=== PATIENT | male | born 1985 | race Caucasian/White ===

== ENCOUNTER 2022-11-12 15:27 | Emergency (ER) | payer OTHER, SELFPAY ==
[2022-11-12] VITALS (18 sets, daily range): BP systolic 133–173; BP diastolic 86–114; PULSE 69–90; RESP 14; TEMP 36.6; O2SAT 96–100
[2022-11-12] MEDS: HYDROmorphone 2 MG/ML SYR (15:45)
--- NOTE | 2022-11-12 15:45 | DI.CT_ITS ---
Exam(s) CT LOWER EXTREMITY RT WO EXAM: CT LOWER EXTREMITY RT WO CLINICAL HISTORY: right ankle injury- Trauma fall from +10ft. TECHNIQUE: Imaging Protocol: Axial computed tomography images with coronal and sagittal reformatted images were created and reviewed. CONTRAST MATERIAL: None COMPARISON: No exams were available for comparison FINDINGS: Bones: Markedly comminuted calcaneal fracture. Fracture at junction of body and tuberosity in the c oronal plane some adjacent comminuted fragments. Multiple other of fracture fragment extending anter iorly to involve the anterior process. There is involvement of the anterior middle and posterior fac ets of the talocalcaneal joint. There are several millimeters of separation at the fracture sites. No additional fractures are identified. There is no joint space narrowing or cystic degeneration see n. No lytic or sclerotic lesions are identified. Calcaneal Enthesophytes incidentally noted. Soft Tissues: Edema greatest at the dorsal lateral aspect of the ankle and foot. IMPRESSION: Severely comminuted calcaneal fracture. RADIATION DOSE DELIVERED: 359.93mGy.cm Total DLP DATA REPOSITORY: All CT scans at this facility are submitted to the National Radiology Data Registry (NRDR) Dose Index Registry (DIR) with the [employer] (ACR). RADIATION OPTIMIZATION: All CT scans at this facility use at least one of these dose optimization te chniques: automated exposure control; mA and/or kV adjustment per patient size (includes targeted exa ms where dose is matched to clinical indication); or iterative reconstruction.
--- NOTE | 2022-11-12 15:45 | DI.CT_ITS ---
Exam(s) CT HEAD CERVICAL SPINE WO EXAM: CT HEAD CERVICAL SPINE WO CLINICAL HISTORY: Trauma fall from +10ft. TECHNIQUE: Imaging Protocol: Axial computed tomography images with coronal and sagittal reformatted images were created and reviewed COMPARISON: No exams were available for comparison FINDINGS: Head CT Ventricles and Extra axial spaces: Normal in size and morphology for the patient's age. Hemorrhage: None. Cerebral parenchyma: Normal. Midline shift: None. Brainstem/Cerebellum: Normal. Calvarium: Normal. Visualized Paranasal sinuses/Mastoids: Mucosal thickening of the ethmoid, maxillary, cysts fee noise and right frontal sinus. Mastoid air cells are clear. Cervical Spine CT BONES: Vertebral body heights are maintained. Alignment is normal. There is no evidence of acute frac ture. Mild degenerative disc changes and facet degenerative changes are seen . SOFT TISSUES: No paraspinal hematoma. The airway appears intact. No pneumothorax is seen at the lung apices. IMPRESSION: Head CT: Chronic sinus disease. No acute abnormality. C-spine CT: Mild degenerative changes, no acute abnormality. RADIATION DOSE DELIVERED: 1,662.06mGy.cm Total DLP DATA REPOSITORY: All CT scans at this facility are submitted to the National Radiology Data Registry (NRDR) Dose Index Registry (DIR) with the [employer] (ACR). RADIATION OPTIMIZATION: All CT scans at this facility use at least one of these dose optimization te chniques: automated exposure control; mA and/or kV adjustment per patient size (includes targeted exa ms where dose is matched to clinical indication); or iterative reconstruction.
--- NOTE | 2022-11-12 15:45 | DI.CT_ITS ---
Exam(s) CT CHEST/ABD/PEL W CT THORACIC LUMBAR SPINE REC EXAM: CT CHEST/ABD/PEL W CLINICAL HISTORY: Trauma fall from +10ft. TECHNIQUE: Imaging Protocol: Axial computed tomography images with coronal and sagittal reformatted images were created and reviewed CONTRAST MATERIAL: Intravenous: Omnipaque 350 Contrast volume:100 ml Oral: no COMPARISON: CT CT THORACIC LUMBAR SPINE REC from 11/12/2022 FINDINGS: CHEST: Tracheobronchial tree: Patent where visualized. Pulmonary parenchyma: No consolidation or dominant measurable mass. Pleura: No effusion or pneumothorax. Lymph nodes: Within normal limits. Aorta: Thoracic portion non-dilated. Heart: Normal Bones: Unremarkable for age. No lytic or blastic lesions.No compression fractures. No rib fractures . CT THORACIC SPINE: No evidence of fracture. Mild degenerative changes. ABDOMEN: Liver: Normal density. No measurable mass. Gallbladder and biliary tract: No radiodense calculus or dilation. Pancreas: Normal density, no abnormal calcifications or inflammatory process. Spleen: Normal. Kidneys: Normal size, contour and axis. No radiodense stones or obstructive uropathy. No suspicious m asses seen. Adrenal glands: No masses seen. Aorta: Abdominal portion non-dilated. Lymph nodes: Within normal limits. Soft tissues: Unremarkable. CT LUMBAR SPINE: No evidence spine or pelvic fracture. Mild degenerative disc changes. PELVIS: Bladder: Symmetric distention, no gross wall thickening. Bowel: No obstruction or bowel wall thickening. Peritoneal cavity: No ascites, collection or mesenteric inflammatory response. Bones: Unremarkable for age.. No pelvic or spine fractures. Reproductive organs: Within normal limits. IMPRESSION: No acute abnormality in the chest, abdomen or pelvis.. RADIATION DOSE DELIVERED: Total DLP DATA REPOSITORY: All CT scans at this facility are submitted to the National Radiology Data Registry (NRDR) Dose Index Registry (DIR) with the [employer] (ACR). RADIATION OPTIMIZATION: All CT scans at this facility use at least one of these dose optimization te chniques: automated exposure control; mA and/or kV adjustment per patient size (includes targeted exa ms where dose is matched to clinical indication); or iterative reconstruction.
[2022-11-12] MEDS: HYDROmorphone 2 MG/ML SYR 1 MG IVP ×2 (16:10→18:43)
--- NOTE | 2022-11-12 16:13 | ED.GENADUL_ITS ---
Discharge Plan Disposition Patient Disposition: Transfer-Acute Inpatient Care Specific Acute Inpt Facility: [facility] Discharge Details Clinical Impression: Calcaneus fracture, right Primary Care Provider: None,None ED Provider: Adalberto Matute Home Meds and New Rx's Prescriptions: No Action escitalopram oxalate [Lexapro] 10 mg Tablet 10 mg PO DAILY clonazepam 0.5 mg Tablet 0.5 mg PO TID omeprazole 20 mg Tablet,Delayed Release (Dr/Ec) 20 mg PO DAILY Discharge Data Discharge Date/Time-TO BE ENTERED AT DEPARTURE: 11/12/22 19:17 Medical Decision Making Patient presenting to the emergency department via EMS for chief complaint of fa ll from a ladder that was greater than 10 feet. Patient mostly complaining of right lower extremity pain and discomfort. And right earlobe laceration. Patient is somewhat emotionally hysterical and crying a lot stating severe pain. This does limit somewhat of the review of systems and exam. Trauma exam is overall unremarkable except for the noted laceration to right lower ear externally and diffuse tenderness with any palpation or movement of the right ankle. There is diffuse swelling. Patient has no range of motion secondary to pain. Initial survey shows that patient is has intact airway, appropriate breathing, normal cardiac function, distal extremities have full sensation and movement intact. No truncal abnormalities are noted, beyond right lower extremity extremity exam is otherwise unremarkable. We will plan on morley scanning patient due to significant trauma. Reviewed review of CBC shows overall nondiagnostic no worrisome findings no anemia or low platelets noted, CMP is all within normal range and no concern, ethyl alcohol is slightly elevated at 33.9. Still pending urinalysis. Review of radiological imaging and radiologist interpretation shows no acute findings except for a significant comminuted fracture of the calcaneus with involvement of multiple joint spaces no dislocation noted by radiologist. Contacted [facility] [place] of [place] consult. Did repair laceration of right earlobe. On the anterior aspect there is an irregular laceration approximately 2 cm in length that did have an aspect that was completely through to the posterior aspect which is also 2 cm in length. Wound was thoroughly irrigated and sterile technique was utilized to repair wound. Please see procedure note for repair. Patient does state that he knows its been at least more than 5 years since his last tetanus so tetanus was updated. Spoke with Dr. Bocanegra with trauma service at [facility] who after discussion of case agreed to accept patient in transfer to their facility for trauma consult. Posterior slab was placed on patient's affected extremity just to help with transport. Patient transported in stable condition with no significant change in status except slight reduction in pain. Imaging Data Radiologic Study: Attestation: I personally reviewed and interpreted this imaging study as f christianlows: Imaging: CT Scan Radiologist's impression: Exam(s) PROCEDURE INFORMATION: Exam: CT Thoracic Spine Without Contrast Exam date and time: 11/12/2022 4:45 PM Age: 37 years old Clinical indication: Injury or trauma; Injury date: 11/12/22; Injury details: Trauma fall from +10ft TECHNIQUE: Imaging protocol: Computed tomography of the thoracic spine without contrast. COMPARISON: CT HEAD CERVICAL SPINE WO 11/12/2022 4:39 PM FINDINGS: Bones/joints: No acute fracture. Normal alignment. No significant disc bulge or herniation. No severe spinal canal stenosis. No significant neural foraminal narrowing. Soft tissues: Unremarkable. IMPRESSION: Unremarkable CT Spine. PROCEDURE INFORMATION: Exam: CT Lumbar Spine Without Contrast Exam date and time: 11/12/2022 4:45 PM Age: 37 years old Clinical indication: Injury or trauma; Injury date: 11/12/22; Injury details: Trauma fall from +10ft TECHNIQUE: Imaging protocol: Computed tomography of the lumbar spine without contrast. COMPARISON: No relevant prior studies available. FINDINGS: Bones/joints: No acute fracture. Normal alignment. No significant disc bulge or herniation. No severe spinal canal stenosis. No significant neural foraminal narrowing. Soft tissues: Unremarkable. IMPRESSION: No acute findings. Radiologic Study #2: Attestation: I personally reviewed and interpreted this imaging study as follows: Imaging: CT Scan Radiologist's impression: Patient Name: Catie Ferraro #: [id number]: ER Ordering Provider: : PRE ER Primary Care Provider:Date of Exam: 11/12/22Sex: M : 1985Age: 37 Exam(s) PROCEDURE INFORMATION: Exam: CT Head Without Contrast Exam date and time: 11/12/2022 4:39 PM Age: 37 years old Clinical indication: Injury or trauma; Blunt trauma (contusions or hematomas); Injury date: 4200827; Injury details: Trauma fall from +10ft TECHNIQUE: Imaging protocol: Computed tomography of the head without contrast. COMPARISON: No relevant prior studies available. FINDINGS: Brain: Normal. No hemorrhage. Unremarkable white matter. No mass effect. Cerebral ventricles: No ventriculomegaly. Paranasal sinuses: There is moderate to severe mucosal thickening of the maxillary sinuses bilaterally. There is mucosal thickening of the ethmoid sinuses. There is mucosal thickening of the sphenoid sinuses. There is mucosal thickening of the frontal sinuses. Mastoid air cells: Visualized mastoid air cells are well aerated. Bones/joints: Unremarkable. No acute fracture. Soft tissues: Unremarkable. IMPRESSION: Sinusitis as above. PROCEDURE INFORMATION: Exam: CT Cervical Spine Without Contrast Exam date and time: 11/12/2022 4:39 PM Age: 37 years old Clinical indication: Injury or trauma; Blunt trauma (contusions or hematomas); Injury date: 4200827; Injury details: Trauma fall from +10ft TECHNIQUE: Imaging protocol: Computed tomography of the cervical spine without contrast. COMPARISON: No relevant prior studies available. FINDINGS: Bones/joints: Is a normal lordosis. The vertebral bodies maintain their height throughout. There are degenerative changes at C1-C2. The pedicles are intact. There are slight degenerative changes with osteophyte formation at multiple levels. Prevertebral and retropharyngeal spaces: There is no prevertebral soft tissue swelling. Lungs: The lung apices are within normal limits. Thyroid: The thyroid gland is within normal limits. Soft tissues: Unremarkable. IMPRESSION: Degenerative changes as above. HPI General Mode of arrival: EMS . Date/Time Provider Initiated Documentation: 11/12/22 15:53 . Limitations to Documentation: no limitations . Information obtained by: patient, EMS and RN notes reviewed . History of Present Illness 37 year old M presents to the emergency department with the chief complaint of Fall from greater than 10 feet and right ankle injury., described as severe, with intensity rated at 10. Quality is described as sharp, and is localized to the right and lower extremity. Patient reports no radiation. Patient started experiencing this minute(s) (30) and it has been constant. No relieving factors improve symptom(s), Movement worsens symptoms . Patient notes no other symptoms.. Patient did receive the following treatments prior to arrival, none Related Data Home Medications Medication Instructions Recorded Confirmed clonazepam 0.5 mg tablet 0.5 mg PO TID anxiety 11/12/22 11/12/22 escitalopram oxalate 10 mg tablet 10 mg PO DAILY depression 11/12/22 11/12/22 (Lexapro) omeprazole 20 mg tablet,delayed 20 mg PO DAILY GERD 11/12/22 11/12/22 release General Stated Complaint: Trauma AARON: 2 Review of Systems Constitutional Constitutional: Denies headache(s) Eyes Eyes: Denies change in vision ENT Ears, Nose, Mouth, and Throat: Denies facial pain, Denies headache(s) and Denies neck pain Cardiovascular Cardiovascular: Denies chest pain, Denies syncope and Denies dyspnea Respiratory Respiratory: Denies dyspnea Gastrointestinal Gastrointestinal: Denies abdominal pain Musculoskeletal Musculoskeletal: Denies back pain and Denies neck pain Neurologic Neurologic: Denies syncope and Denies headache(s) PFSH All Active Problems (Updated 11/12/22 @ 18:46 by Adalberto Matute NP) Calcaneus fracture, right (Acute) Social History Smoking/Tobacco Use Status: Never Smoking risk assessment performed?: Yes Alcohol Intake: current Alcohol Intake frequency: 0-2 drinks per day Alcohol type: beer Drug use: Occasionally Substance use type: marijuana Do you feel safe at home: Yes Do you feel safe in your relationship?: Yes Exam Const General: anxious Nutritional Appearance: average body habitus Orientation: alert, awake and oriented x3 HENMT Head: normal to inspection, normocephalic, atraumatic, no Sol's sign and no raccoon eyes Ears: hearing grossly normal bilaterally and external ear abnormal (laceration right ear lobe) General nose exam: external nose normal Face and sinus: normal facial exam Mouth: oral mucosae normal Eyes General: appearance normal, both eyes and all related structures Neck Neck: nontender Chest Chest: normal inspection of the chest, normal palpation of entire chest wall and no localized rib tenderness Resp Effort & Inspection: normal respiratory effort and able to speak in complete sentences Auscultation: clear to auscultation bilaterally Cardio Rate: regular rate Rhythm: regular rhythm Heart Sounds: S1 normal and S2 normal GI Inspection: normal to inspection Palpation: soft, not firm, no guarding, not rigid and nontender Auscultation: normal bowel sounds Back/Spine/Pelvis Cervical Spine: normal cervical lordosis, collar present and No cervical spinal tenderness Thoracic/Lumbar Spine: thoracic and lumbar spine normal to inspection, No thoracic spinal tenderness and No lumbar spinal tenderness Pelvis: no pain with anterior-posterior compression and no pain with lateral compression Extrem General: normal exam except as noted Left lower extremity: ankle Details: abnormal to inspection (deformity ) Details: bone not obviously exposed, tenderness, swelling and abnormal ROM Details: pain with active ROM and pain with passive ROM; no ecchymosis and no penetrating wound Course Vital Signs Vital signs: Vital Signs Temperature 36.6 C 11/12/22 15:27 Pulse 90 11/12/22 15:27 Respiratory Rate 14 11/12/22 15:27 Blood Pressure 163/114 H 11/12/22 15:27 Pulse Oximetry 99 11/12/22 15:27 Temperature 36.6 C 11/12/22 15:27 Temperature Source Oral 11/12/22 15:27 Pulse 90 11/12/22 15:27 Respiratory Rate 14 11/12/22 15:27 Respiratory Effort Normal, Non-Labored 11/12/22 15:34 Respiratory Depth Normal 11/12/22 15:34 Respiratory Pattern Normal 11/12/22 15:34 Blood Pressure 163/114 H 11/12/22 15:27 Blood Pressure Position Supine 11/12/22 15:27 Pulse Oximetry 99 11/12/22 15:27 Oxygen Delivery Method Room Air 11/12/22 15:27 Oxygen Flow Rate 0 11/12/22 15:27 Pain Level 7 11/12/22 15:45 Procedures Laceration Laceration 1: Site: other (ear) Side (If applicable): right Size (cm): 4 Description: stellate Depth: [id number] Local Anesthetic: Lidocaine 1% Amount of anesthesia used (mL): 3 Pre-repair: wound explored, irrigated extensively and deep structures intact Skin layer closed with: other (Prolene) Size (cm): 6-0 Number of sutures: 6 Technique: simple, interrupted Subcutaneous layer closed with: other (Monocryl) Number of sutures: 1 Technique: simple, interrupted Orthopedic Splinting/Casting Injury #1: Side: right Lower Extremity Injury Location: lower leg, ankle and foot Lower Extremity Immobilizer: posterior splint (Ortho-Glass) and Santhosh wrap
[2022-11-12] MEDS: Normal Saline 1,000 ML 1000 ML IV (16:16)
[2022-11-12 16:19] LABS: Abs Immature Grans 0.08 10^3/uL (0.0-0.06); Absolute Basophil Count 0.06 10^3/uL (0.0-0.2); Absolute Eosinophil Count 0.28 10^3/uL (0.0-0.7); Absolute Lymphocyte Count 1.92 10^3/uL (1.2-3.4); Absolute Neutrophil Count 6.04 10^3/uL (1.2-6.7); Basophils % 0.6; HCT 39.9 % (40.0-50.0); Immature Grans % 0.9; Lymphocytes % 20.5; MCHC 35.1 % (32.0-36.0); MCV 83 fL (80-95); MPV 8.7 fL (8.0-11.0); Monocytes % 10.7; Neutrophils % 64.3; Platelet Count 275 10^3/uL (130-400); RBC 4.83 10^6/uL (4.36-5.78); RDW 11.7 % (11.8-14.1); RDW-SD 35.4 fL; WBC 9.38 10^3/uL (4.4-10.8)
[2022-11-12] MEDS: Normal Saline - Diluent 50 ML VIAL IJ (16:28)
[2022-11-12] MEDS: Omnipaque 350 MG/ML 500 ML BTL-Imaging package IJ (16:28)
[2022-11-12] MEDS: Normal Saline Flush 10 ML SYR IVP (16:29)
[2022-11-12] MEDS: LORazepam 2 MG/ML VIAL 0.5 MG IM (16:30)
[2022-11-12 16:32] LABS: ETHANOL BLOOD 33.9 mg/dL (<10)
[2022-11-12 16:37] LABS: ALT 37 U/L (16-63); AST 25 U/L (15-37); Albumin 4.1 g/dL (3.4-5.0); Alkaline Phosphatase 86 U/L (46-116); BUN 13 mg/dL (7-18); Bilirubin, Total 0.3 mg/dL (0.2-1.0); CREATININE 1.1 mg/dL (0.70-1.30); Calcium 9.5 mg/dL (8.5-10.1); Chloride 101 mmol/L (98-107); Estimated GFR 87.57 (mL/min/1.73m2); Glucose 95 mg/dL (74-106); Potassium 3.8 mmol/L (3.5-5.1); Sodium 136 mmol/L (136-145); Total Protein 8.2 g/dL (6.4-8.2)
--- NOTE | 2022-11-12 17:17 | DI.VRAD_ITS ---
PROCEDURE INFORMATION: Exam: CT Head Without Contrast Exam date and time: 11/12/2022 4:39 PM Age: 37 years old Clinical indication: Injury or trauma; Blunt trauma (contusions or hematomas); Injury date: 4200827; Injury details: Trauma fall from + TECHNIQUE: Imaging protocol: Computed tomography of the head without contrast. COMPARISON: No relevant prior studies available. FINDINGS: Brain: Normal. No hemorrhage. Unremarkable white matter. No mass effect. Cerebral ventricles: No ventriculomegaly. Paranasal sinuses: There is moderate to severe mucosal thickening of the maxillary sinuses bilaterally. There is mucosal thickening of the ethmoid sinuses. There is mucosal thickening of the sphenoid sinuses. There is mucosal thickening of the frontal sinuses. Mastoid air cells: Visualized mastoid air cells are well aerated. Bones/joints: Unremarkable. No acute fracture. Soft tissues: Unremarkable. IMPRESSION: Sinusitis as above. PROCEDURE INFORMATION: Exam: CT Cervical Spine Without Contrast Exam date and time: 11/12/2022 4:39 PM Age: 37 years old Clinical indication: Injury or trauma; Blunt trauma (contusions or hematomas); Injury date: 4200827; Injury details: Trauma fall from + TECHNIQUE: Imaging protocol: Computed tomography of the cervical spine without contrast. COMPARISON: No relevant prior studies available. FINDINGS: Bones/joints: Is a normal lordosis. The vertebral bodies maintain their height throughout. There are degenerative changes at C1-C2. The pedicles are intact. There are slight degenerative changes with osteophyte formation at multiple levels. Prevertebral and retropharyngeal spaces: There is no prevertebral soft tissue swelling. Lungs: The lung apices are within normal limits. Thyroid: The thyroid gland is within normal limits. Soft tissues: Unremarkable. IMPRESSION: Degenerative changes as above. Dictated and Authenticated by: Adolfo John MD. Ordering:GUADALUPE Glover MD
[2022-11-12] MEDS: ACETAMINOPHEN 1,000 MG/100 ML BTL 400 MG IVPB (17:22)
--- NOTE | 2022-11-12 17:27 | DI.VRAD_ITS ---
PROCEDURE INFORMATION: Exam: CT Thoracic Spine Without Contrast Exam date and time: 11/12/2022 4:45 PM Age: 37 years old Clinical indication: Injury or trauma; Injury date: 11/12/22; Injury details: Trauma fall from +10ft TECHNIQUE: Imaging protocol: Computed tomography of the thoracic spine without contrast. COMPARISON: CT HEAD CERVICAL SPINE WO 11/12/2022 4:39 PM FINDINGS: Bones/joints: No acute fracture. Normal alignment. No significant disc bulge or herniation. No severe spinal canal stenosis. No significant neural foraminal narrowing. Soft tissues: Unremarkable. IMPRESSION: Unremarkable CT Spine. PROCEDURE INFORMATION: Exam: CT Lumbar Spine Without Contrast Exam date and time: 11/12/2022 4:45 PM Age: 37 years old Clinical indication: Injury or trauma; Injury date: 11/12/22; Injury details: Trauma fall from +10ft TECHNIQUE: Imaging protocol: Computed tomography of the lumbar spine without contrast. COMPARISON: No relevant prior studies available. FINDINGS: Bones/joints: No acute fracture. Normal alignment. No significant disc bulge or herniation. No severe spinal canal stenosis. No significant neural foraminal narrowing. Soft tissues: Unremarkable. IMPRESSION: No acute findings. Dictated and Authenticated by: Claudine Moser MD. Ordering:GUADALUPE Glover MD
--- NOTE | 2022-11-12 17:39 | DI.VRAD_ITS ---
PROCEDURE INFORMATION: Exam: CT Chest With Contrast; Diagnostic Exam date and time: 11/12/2022 4:45 PM Age: 37 years old Clinical indication: Injury or trauma; Blunt; Injury date: 11/12/22; Injury details: Trauma fall from +10ft TECHNIQUE: Imaging protocol: Diagnostic computed tomography of the chest with contrast. Contrast material: OMNIPAQUE 350; Contrast volume: 100 ml; Contrast route: INTRAVENOUS (IV); COMPARISON: CT HEAD CERVICAL SPINE WO 11/12/2022 4:39 PM FINDINGS: Lungs: Unremarkable. No consolidation. No masses. Pleural spaces: Unremarkable. No pneumothorax. No pleural effusion. Heart: Unremarkable. No cardiomegaly. No pericardial effusion. Lymph nodes: Unremarkable. No enlarged lymph nodes. Vasculature: Unremarkable. No aortic aneurysm. Bones/joints: Unremarkable. No acute fracture. Soft tissues: Unremarkable. IMPRESSION: No acute findings. PROCEDURE INFORMATION: Exam: CT Abdomen And Pelvis With Contrast Exam date and time: 11/12/2022 4:45 PM Age: 37 years old Clinical indication: Injury or trauma; Blunt; Injury date: 11/12/22; Injury details: Trauma fall from +ft TECHNIQUE: Imaging protocol: Computed tomography of the abdomen and pelvis with contrast. Contrast material: OMNIPAQUE 350; Contrast volume: 100 ml; Contrast route: INTRAVENOUS (IV); COMPARISON: No relevant prior studies available. FINDINGS: Liver: Normal. No mass. Gallbladder and bile ducts: Normal. No calcified stones. No ductal dilation. Pancreas: Normal. No ductal dilation. Spleen: Normal. No splenomegaly. Adrenal glands: Normal. No mass. Kidneys and ureters: Normal. No hydronephrosis. Stomach and bowel: Unremarkable. No obstruction. No mucosal thickening. Appendix: No evidence of appendicitis. Intraperitoneal space: Unremarkable. No free air. No significant fluid collection. Vasculature: Unremarkable. No abdominal aortic aneurysm. Lymph nodes: Unremarkable. No enlarged lymph nodes. Urinary bladder: Unremarkable as visualized. Reproductive: Unremarkable as visualized. Bones/joints: Unremarkable. No acute fracture. Soft tissues: Unremarkable. IMPRESSION: No acute findings. Dictated and Authenticated by: Claudine Moser MD. Ordering:GUADALUPE Glover MD
[2022-11-12] MEDS: LORazepam 2 MG/ML VIAL 0.5 MG IVP (17:40)
--- NOTE | 2022-11-12 18:24 | DI.VRAD_ITS ---
PROCEDURE INFORMATION: Exam: CT Right Lower Extremity Without Contrast Exam date and time: 11/12/2022 4:57 PM Age: 37 years old Clinical indication: Injury or trauma; Injury date: 11/12/22; Injury details: Trauma fall from +10ft TECHNIQUE: Imaging protocol: CT of the right lower extremity without contrast was performed. COMPARISON: No relevant prior studies available. FINDINGS: Bones/joints: There is a comminuted fracture involving the entire region of the calcaneus with multiple fracture fragments noted. The fracture involves the anterior, middle and posterior facets of the talocalcaneal joint with fracture lines extending to the joint spaces. No significant joint dislocation. Enthesophytes noted the posterior aspect of the calcaneus. Soft tissues: Subcutaneous soft tissue edema noted predominantly at the dorsum of the foot. IMPRESSION: Comminuted fracture of the calcaneus, extending to multiple joint spaces as described. No joint dislocation. Dictated and Authenticated by: Claudine Moser MD. Ordering:GUADALUPE Glover MD
[2022-11-12] MEDS: Ketorolac 15 MG/ML VIAL IVP (18:42)
== END 2022-11-12 19:17 | disposition short-term general hospital (02) ==
PROVIDERS: Emergency Provider Nurse Practitioner Family
DX: S92.001A Unspecified fracture of right calcaneus, initial encounter for closed fracture (principal); S01.311A Laceration without foreign body of right ear, initial encounter; Z23 Encounter for immunization; W11.XXXA Fall on and from ladder, initial encounter
CPT/HCPCS: 12052; 29515; 74177; 80053; 90471; 96361; 96372; 96374; 96375; 96376; 99285; 70450; 71260; 72125; 73700; 80320; 85025; J0131; J1170; J1885; J2060

== ENCOUNTER 2024-03-22 17:59 | Emergency (ER) | payer OTHER, SELFPAY ==
[2024-03-22 18:10] VITALS: BP 146/92; PULSE 80; RESP 14; TEMP 36.2; O2SAT 97
--- NOTE | 2024-03-22 18:15 | DI.RAD_ITS ---
Exam(s) XR FOOT RT COMPLETE EXAM: XR FOOT RT COMPLETE CLINICAL HISTORY: foot pain. TECHNIQUE: 2D digital imaging was performed. COMPARISON: CT CT LOWER EXTREMITY RT WO from 11/12/2022 FINDINGS: 3 views There is been interval ORIF with 3 PA orientated screws across the calcaneus fracture site and as wel l as a lateral side plate secured by multiple screws. There are no obvious fractures evident at this time. No significant height loss of the calcaneus. N o hardware fracture or loosening. No evidence of osteomyelitis. There is mild swelling of the dorsa l aspect of the foot. IMPRESSION: Orthopedic hardware in the calcaneus. Satisfactory appearance DATA REPOSITORY: RADIATION DOSE DELIVERED:
[2024-03-22] MEDS: Ibuprofen 600 MG TAB PO (18:33)
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
--- NOTE | 2024-03-22 19:40 | DI.VRAD_ITS ---
PROCEDURE INFORMATION: Exam: XR Right Foot Exam date and time: 03/22/2024 6:54 PM Age: 38 years old Clinical indication: Pain; Right; Prior surgery; Surgery date: 6+ months; Surgery type: RT foot /ankle surg TECHNIQUE: Imaging protocol: Radiologic exam of the right foot. Views: 3 or more views. COMPARISON: CT LOWER EXTREMITY RT WO 11/12/2022 4:57 PM FINDINGS: Bones/joints: There has been interval healing of previously described calcaneus fracture with orthopedic hardware in place. Osseous alignment appears anatomic. No evidence of hardware failure or loosening. No evidence of acute fracture. No significant arthritic change. Soft tissues: Normal. IMPRESSION: No acute abnormality Dictated and Authenticated by: Gama Galvan MD. Ordering:JOHANNY Acosta MD
== END 2024-03-22 19:15 | disposition home or self-care (01) ==
LOC: ER 19:19
PROVIDERS: Emergency Provider Emergency Medicine
DX: M79.671 Pain in right foot (principal); W22.8XXA Striking against or struck by other objects, initial encounter
CPT/HCPCS: 29515; 99283; 73630

== ENCOUNTER 2025-01-18 15:18 | Outpatient (REF) | payer OTHER, SELFPAY ==
[2025-01-18 19:40] LABS: Abs Immature Grans 0.02 10^3/uL (0.0-0.06); Absolute Basophil Count 0.07 10^3/uL (0.0-0.2); Absolute Eosinophil Count 0.23 10^3/uL (0.0-0.7); Absolute Lymphocyte Count 1.23 10^3/uL (1.2-3.4); Absolute Monocyte Count 0.56 10^3/uL (0.1-0.8); Absolute Neutrophil Count 3.27 10^3/uL (1.2-6.7); Basophils % 1.3 %; Eosinophils % 4.3 %; HCT 42.8 % (40.0-50.0); HGB 14.6 g/dL (13.5-17.5); Immature Grans % 0.4 %; Lymphocytes % 22.9 %; MCH 28.4 pg (27.0-33.0); MCHC 34.1 % (32.0-36.0); MCV 83 fL (80-95); Monocytes % 10.4 %; Neutrophils % 60.7 %; Platelet Count 241 10^3/uL (130-400); RBC 5.14 10^6/uL (4.36-5.78); RDW 12.5 % (11.8-14.1); WBC 5.38 10^3/uL (4.4-10.8)
[2025-01-18 19:57] LABS: Hemoglobin A1C 5.1 % (<5.7)
[2025-01-18 20:10] LABS: ALT 38 U/L (16-63); AST 23 U/L (15-37); Albumin 4.5 g/dL (3.4-5.0); Alkaline Phosphatase 90 U/L (46-116); Anion Gap 8.3 mmol/L (3-11); BUN 9 mg/dL (7-18); Bilirubin, Total 0.5 mg/dL (0.2-1.0); CO2 27.7 mmol/L (21.0-32.0); CREATININE 0.9 mg/dL (0.70-1.30); Calcium 9.3 mg/dL (8.5-10.1); Calculated LDL 111 mg/dL (<100); Chloride 104 mmol/L (98-107); Cholesterol 207 mg/dL (<200); Estimated GFR 110.04 (mL/min/1.73m2); Glucose 111 mg/dL (74-106); HDL Cholesterol 61 mg/dL (>or=40); Potassium 4.4 mmol/L (3.5-5.1); Sodium 140 mmol/L (136-145); TSH 2.73 uIU/mL (0.36-3.74); Total Protein 8.1 g/dL (6.4-8.2); Triglyceride 179 mg/dL (<150)
[2025-01-21 10:24] LABS: PSA, Diagnostic 0.6 ng/mL (<=2.5)
== END 2025-01-18 15:19 | disposition home or self-care (01) ==
LOC: NCHCN 15:18
PROVIDERS: PCP Family Medicine; Visit Provider Family Medicine
DX: Z00.00 Encounter for general adult medical examination without abnormal findings (principal)
CPT/HCPCS: 80053; 80061; 83036; 84153; 84443; 85025

== ENCOUNTER 2025-03-16 22:07 | Emergency (ER) | payer OTHER, SELFPAY ==
[2025-03-16 22:08] VITALS: BP 138/87; PULSE 73; RESP 18; TEMP 36.8; O2SAT 94
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
== END 2025-03-17 00:57 | disposition home or self-care (01) ==
PROVIDERS: Emergency Provider Emergency Medicine; PCP Family Medicine
DX: S00.83XA Contusion of other part of head, initial encounter (principal); W22.8XXA Striking against or struck by other objects, initial encounter
CPT/HCPCS: 99283; 99284; 70450; 72125